=== PATIENT | female | born 1975 | race Two or more races ===

== ENCOUNTER 2019-02-09 12:04 | Emergency (ER) | payer MEDICARE, OTHER ==
[~2019-02-09] VITALS: Ht 162.6 cm; Wt 56.2 kg
[2019-02-09] MEDS ORDERED: ASPirin 81 mg TAB PO ONE (12:15)
[2019-02-09] MEDS ORDERED: MORPHINE SULFATE 4 MG/ML SYR/VIAL IV ONE (12:15)
[2019-02-09 15:49] LABS: Potassium 4.2 mmol/L (3.5-5.1)
[2019-02-09 15:55] LABS: Albumin 3.5 g/dL (3.4-5.0); BUN/Creatinine Ratio 15.8; Bilirubin, Total 0.3 mg/dL (0.2-1.0); Total Protein 8.4 g/dL (6.4-8.2)
[2019-02-09 16:10] LABS: Basophils # (auto) 0 uL; Basophils % (auto) 0.7 % (0.0-2.0); Eosinophils # (auto) 0.1 uL; Eosinophils % (auto) 4.8 % (0.0-7.0); Hematocrit 42.7 % (36.0-46.0); Hemoglobin 14.6 g/dL (12.2-16.2); Lymphocytes # (auto) 0.5 uL; Lymphocytes % (auto) 17.5 % (10.0-50.0); Mean Corpuscular Hemoglobin 31.8 pg (28.0-32.0); Mean Corpuscular Hgb Conc. 34.3 g/dL (32.0-36.0); Mean Corpuscular Volume 92.7 fL (80.0-100.0); Monocytes # (auto) 0.4 uL; Monocytes % (auto) 13.2 % (0.0-12.0); Neutrophils # (auto) 1.8 uL; Neutrophils % (auto) 63.8 % (37.0-80.0); Nucleated Red Blood Cells % 0.2 %; Platelet Count (auto) 104 10^3/uL (140-450); Red Cell Distribution Width 13.6 % (11.8-14.3); White Blood Cell 2.9 10^3/uL (4.4-10.8)
[2019-02-09 16:15] LABS: INR 0.93 (0.9-1.15)
[2019-02-09 16:31] VITALS: BP 118/80
== END 2019-02-09 17:07 | disposition left against medical advice (07) ==
LOC: ER 12:04
DX: R07.9 Chest pain, unspecified (principal); I25.2 Old myocardial infarction; J32.9 Chronic sinusitis, unspecified; D72.819 Decreased white blood cell count, unspecified
CPT/HCPCS: 36415; 71046; 80053; 84484; 85025; 85379; 85610; 85730; 93005; 94761

== ENCOUNTER 2023-12-17 13:31 | Inpatient (IN) | payer OTHER, MEDICAID ==
[~2023-12-17] VITALS: Ht 162.6 cm; Wt 68.3 kg
[2023-12-17 16:30] LABS: Basophils # (auto) 0 10 ^3/uL (0-0.2); Basophils % (auto) 0.3 % (0.0-2.0); Eosinophils # (auto) 0.1 10 ^3/uL (0-0.8); Eosinophils % (auto) 1.9 % (0.0-7.0); Hematocrit 39.1 % (36.0-46.0); Hemoglobin 12.8 g/dL (12.2-16.2); Lymphocytes % (auto) 29.5 % (10.0-50.0); Mean Corpuscular Hemoglobin 28.1 pg (28.0-32.0); Mean Corpuscular Hgb Conc. 32.9 g/dL (32.0-36.0); Mean Corpuscular Volume 85.4 fL (80.0-100.0); Monocytes # (auto) 0.7 10 ^3/uL (0-1.3); Monocytes % (auto) 9.6 % (0.0-12.0); Neutrophils % (auto) 58.7 % (37.0-80.0); Nucleated Red Blood Cells % 0.4 %; Red Blood Cells 4.57 10^6/uL (4.0-5.20); Red Cell Distribution Width 14.1 % (11.8-14.3); White Blood Cell 6.8 10^3/uL (4.4-10.8)
[2023-12-17 16:47] LABS: Alanine Aminotransferase 10 U/L (7-40); Albumin 4.1 g/dL (3.2-4.8); Alkaline Phosphatase 79 U/L (46-116); Anion Gap 6 (5-15); Aspartate Aminotransferase 24 U/L (13-40); Blood Urea Nitrogen 9 mg/dL (9-23); Calcium 9.5 mg/dL (8.5-10.1); Carbon Dioxide 23 mmol/L (20-30); Chloride 109 mmol/L (98-107); Glucose 88 mg/dL (74-106); Potassium 4.2 mmol/L (3.5-5.1); Sodium 138 mmol/L (136-145)
[2023-12-17 16:48] LABS: Bilirubin, Total 0.3 mg/dL (0.2-1.0); Total Protein 8.6 g/dL (5.7-8.2)
[2023-12-17] MEDS ORDERED: MORPHINE SULFATE INJ 2 MG/ml SYRG IV PRN (17:15)
[2023-12-17] MEDS ORDERED: NITROGLYCERIN 0.4 MG SL TAB SL PRN (17:15)
[2023-12-17] MEDS ORDERED: ACETAMINOPHEN 325 MG TAB PO PRN (17:30)
[2023-12-17] MEDS ORDERED: ONDANSETRON HCL 4 MG/2 ML VIAL IV PRN (17:30)
[2023-12-17] MEDS: SODIUM CHLORIDE 0.9% 1,000 ML IV SCH (17:30)
[2023-12-17] MEDS ORDERED: D5W 5% IV SCH (18:00)
[2023-12-17] MEDS ORDERED: PENICILLIN POTASSIUM IV SCH (18:00)
[2023-12-18 07:41] LABS: INR 1.01 (0.9-1.15); Partial Thromboplastin Time 35.3 SEC (24.5-34.5); Prothrombin Time 10.6 sec (9.3-11.8)
[2023-12-18 08:48] VITALS: BP 108/48; PULSE 83; RESP 16; TEMP 98.2; O2SAT 97
[2023-12-18] MEDS: FAMOTIDINE 20 MG TAB PO SCH (10:26)
[2023-12-20 18:06] LABS: Treponema pallidum Ab (FTA-Ab) Reactive (Non Reactive)
== END 2023-12-18 14:27 | disposition left against medical advice (07) | DRG 57 ==
LOC: ER 13:31 → TELE 17:13
PROVIDERS: ADMIT Hospitalist; ATTEND Internal Medicine
DX: A52.3 Neurosyphilis, unspecified (principal); B20 Human immunodeficiency virus [HIV] disease; A52.71 Late syphilitic oculopathy; I25.2 Old myocardial infarction
CPT/HCPCS: 36415; 70450; 80053; 85025; 85610; 85730; 86592; 87040; 87077; 87186; G0378